=== PATIENT | female | born 1990 | race Caucasian/White ===

== ENCOUNTER 2019-02-04 20:33 | Emergency (ER) | payer MEDICAID, SELFPAY ==
--- NOTE | 2019-02-04 20:35 | ED.GENADUL_ITS ---
Discharge Plan Disposition Patient Disposition: HOME Condition: Good Discharge Details Chief Complaint: EyeProblem Clinical Impression: Acute bacterial conjunctivitis Primary Care Provider: Josee Cisneros ED Provider: Dionisio Gale Home Meds and New Rx's Prescriptions: No Action Unknown capsule See Rx Instructions .ROUTE .COMPLEX RF: 0 Discharge Instructions Instructions: Conjunctivitis (ED) Additional Instructions: You have bacterial conjunctivitis. Please apply 1 to 2 drops in each eye every 3-4 hours. Please do this for the next 3 to 5 days until your symptoms completely resolved. Do not wear any contact lenses. If you notice any worsening of your symptoms, or any new symptoms such as vomiting, diarrhea, fever, chills, shortness of breath, chest pain, numbness, weakness, or fainting , please return immediately to the emergency department for reevaluation. Please follow up with your beater room helper as soon as possible for reassessment and reevaluation. As always, it was a pleasure participating in your medical care today. Referrals: Josee Cisneros [Primary Care Provider] - Medical Decision Making This is a 28-year-old female with no significant past medical history who presents today with signs and symptoms concerning for conjunctivitis. Symptoms been present for the last 24 hours, mild green goopy discharge. No history of STDs. She does have children at home but they are asymptomatic. She denies any traumas or events that would be concerning for foreign body. She does not wear contact lenses. Physical exam demonstrates minimal conjunctival injection, no evidence of pre-or post septal edema. No pain with movement of the eyes, no visual deficits. Signs and symptoms are clinically consistent with mild bacterial conjunctivitis. Patient will be given polymyxin trimethoprim drops. We will give this here in the ED. Discussed red flags which to return and the importance of follow-up with an beater room helper. I have extensively reviewed the treatment plan and discharge instructions with the patient. I have addressed all patient concerns at this time. The patient was made aware of what symptoms to monitor for that would warrant a return to the emergency department. Discussed the plan with the patient, they demonstrate verbal understanding and agreement with our assessment and plan at this time. HPI General Date/Time Provider Initiated Documentation: 02/04/19 20:35 . HPI Narrative: This is a pleasant 28-year-old female with no past medical history who presents today for symptoms of conjunctivitis. The patient states that for the last 24 to 48 hours she has had mild irritation-like symptoms in the eyes, and mild green and yellow gunky and slightly crusty drainage. She denies any trauma to the eyes, any recent foreign bodies, any power saw working, exposure to dust, or welding. She states her symptoms initially started in the right eye and then transition to the left. She has no pain with movement of the eyes. She denies any visual changes. She has no other complaints at this time. She does have children at home, who do go to daycare but they are asymptomatic at this time. She denies any history of STDs. Related Data Home Medications Medication Instructions Recorded Confirmed Unknown See Rx Instructions .ROUTE .COMPLEX 02/04/19 Allergies Allergy/AdvReac Type Severity Reaction Status Date / Time No Known Allergies Allergy Unverified 02/04/19 20:42 Review of Systems All systems reviewed & are unremarkable except as noted in HPI and below PFSH Social History Smoking/Tobacco Use Status: Never Alcohol Intake: never Drug use: Never Substance use type: does not use Do you feel safe at home: Yes Do you feel safe in your relationship?: Yes Exam Narrative Exam Narrative: 1.Const: Well-nourished, Well-developed, appearing stated age 2.Eyes: PERRL, minimal conjunctival injection, and symmetrical lids. Patient has bilateral mild green slightly goopy discharge primarily at the medial and lateral canthi. No evidence of pre-or post septal edema. No pain with movement of the eyes. Ophthalmologic exam demonstrates no evidence of retinal hemorrhage or abnormality. No evidence of otitis media or externa. No other abnormalities. No significant cobblestoning of the lids. No evidence of stye or chalazion. 3.ENT: Atraumatic external nose and ears. Moist MM. Neck: Symmetric, trachea midline, No thyromegaly. 4.CVS: +S1/S2, No murmurs or gallops. Peripheral pulses 2+ and equal in all extremities. Brisk capillary refill in all extremities. 5.RESP: Unlabored respiratory effort. Clear to auscultation bilaterally. No wheezes rales or rhonchi 6.GI: Soft, Nontender/Nondistended, No hepatosplenomegaly. No guarding or rebound. 7.MSK: Normocephalic/Atraumatic, Extremities w/o deformity or ttp No cyanosis or clubbing, Normal movement of all extremities 8.Skin: Warm, Dry. No rashes or lesions. 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 Sensation grossly intact, no focal neurologic deficits. 10.Psych: (AAO) x3. Appropriate mood and affect
[2019-02-04 20:39] VITALS: BP 122/70; PULSE 89; RESP 18; TEMP 36.8; O2SAT 98
[2019-02-04] MEDS: Polymyxin B/Trimethoprim Ophth Soln 10 ML BTL OU (20:55)
[2019-02-04] MEDS: Polymyxin B/Trimethoprim Ophth Soln 10 ML BTL (20:55)
== END 2019-02-04 21:00 | disposition home or self-care (01) ==
LOC: ER 21:04
PROVIDERS: Emergency Provider Student in an Organized Health Care Education/Training Program; PCP Nurse Practitioner
DX: H10.33 Unspecified acute conjunctivitis, bilateral (principal)
CPT/HCPCS: 99283

== ENCOUNTER 2019-05-11 15:54 | Outpatient (REF) | payer MEDICAID, SELFPAY ==
[2019-05-11 22:20] LABS: Anion Gap 9.3 mmol/L (3-11); BUN 15 mg/dL (7-18); CO2 28.7 mmol/L (21.0-32.0); CREATININE 0.63 mg/dL (0.55-1.02); Calcium 8.9 mg/dL (8.5-10.1); Chloride 101 mmol/L (98-107); Glucose 76 mg/dL (74-106); Sodium 139 mmol/L (136-145); TSH (W/Ref FT4) 2.05 uIU/mL (0.36-3.74)
[2019-05-13 10:25] LABS: Varicella IgG Antibody Positive (See Note)
[2019-05-13 10:30] LABS: Measles IgG Antibody Positive (See Note); Mumps Antibody IgG Negative (See Note); Rubella IgG Ab (UVM) Positive (See Note)
== END 2019-05-11 16:14 ==
LOC: NCHCN 15:54
PROVIDERS: PCP Nurse Practitioner; Visit Provider Nurse Practitioner Family
DX: E66.9 Obesity, unspecified (principal); Z13.1 Encounter for screening for diabetes mellitus; Z11.59 Encounter for screening for other viral diseases; Z01.84 Encounter for antibody response examination
CPT/HCPCS: 80048; 86765; 86787; 84443; 86735; 86762

== ENCOUNTER 2021-02-23 18:20 | Emergency (ER) | payer MEDICAID, SELFPAY ==
[2021-02-23 18:25] VITALS: BP 131/90; PULSE 112; RESP 16; TEMP 35.8; O2SAT 112
--- NOTE | 2021-02-23 18:41 | W.ED.GENAD ---
Discharge Plan Disposition Patient Disposition: HOME Condition: Improving Discharge Details Clinical Impression: Hives Primary Care Provider: Josee Cisneros ED Provider: Tomi Hancock Home Meds and New Rx's Prescriptions: New prednisone 50 mg tablet 50 mg PO DAILY 6 Days Qty: 6 RF: 0 famotidine [Zantac-360 (famotidine)] 20 mg tablet 20 mg PO DAILY Qty: 7 RF: 0 Continued buspirone 7.5 mg Tablet 7.5 mg PO TID RF: 0 Discharge Instructions Instructions: Urticaria (ED) Additional Instructions: Please take prednisone as prescribed until finished. May use Zantac as prescribed/or [id number] once daily for a week. May continue Benadryl 25 to 50 mg at bedtime. Please follow-up with regular doctor if not improving in 5 days time. Medical Decision Making 30-year-old female presents with days of itching lower extremity rash she believes may have begun after using a new detergent. Refractive to calamine lotions and antihistamines. She does have an urticarial rash consistent with hives. Discussed with her use of steroids as well as nonsedating antihistamines. She is stable for discharge at this time. HPI General Mode of arrival: ambulatory. Date/Time Provider Initiated Documentation: 02/23/21 18:29. Limitations to Documentation: no limitations. Information obtained by: patient. History of Present Illness 30 year old F presents to the emergency department with the chief complaint of Itching rash on legs and abdomen, described as moderate, Quality is described as dull, and is localized to the chest. Patient reports no radiation. Patient started experiencing this day(s) and it has been constant. No relieving factors improve symptom(s), No exacerbating factors reported . Patient notes denies shortness of breath. Patient did receive the following treatments prior to arrival, none Related Data Home Medications Medication Instructions Recorded Confirmed buspirone 7.5 mg PO TID 02/23/21 02/23/21 famotidine [Zantac-360 20 mg PO DAILY #7 tab 02/23/21 (famotidine)] prednisone 50 mg PO DAILY 6 Days #6 tab 02/23/21 Previous Rx's Medication Instructions Recorded famotidine [Zantac-360 20 mg PO DAILY #7 tab 02/23/21 (famotidine)] prednisone 50 mg PO DAILY 6 Days #6 tab 02/23/21 Allergies Allergy/AdvReac Type Severity Reaction Status Date / Time No Known Allergies Allergy Unverified 02/04/19 20:42 General Stated Complaint: RashLesion LENCHO: 4 Review of Systems Narrative: 6 systems reviewed and otherwise negative [facility] Active Problem List (Updated 02/23/21 @ 18:43 by Tomi Hancock MD) Hives (Acute) Social History Smoking/Tobacco Use Status: Never Smoking risk assessment performed?: Yes Alcohol Intake: never Drug use: Never Substance use type: does not use Do you feel safe at home: Yes Do you feel safe in your relationship?: Yes Exam Narrative Exam Narrative: GEN: awake, alert, oriented 3. Pleasant, well groomed, interactive. HEAD: Normocephalic, atraumatic ENT: Mucous membranes moist, oropharynx unremarkable, External ear exam unremarkable CHEST/RESP: Nontender, clear to auscultation bilateral, no wheeze/rhonchi/rales CARDIOVASCULAR: RRR, no murmur, rub lisa. 2+ Rad pulse bilateral EXT: Full ROM, no edema, raised, erythematous, blanching urticarial rash on thighs. Skin: Raised erythematous, urticarial rash on legs Neuro: Grossly normal neurologic exam, conversant, interactive. Psych: Speech fluent, thoughts congruent, affect normal Course Vital Signs Vital signs: Vital Signs Temperature 35.8 C L 02/23/21 18:25 Pulse 112 H 02/23/21 18:25 Respiratory Rate 16 02/23/21 18:25 Blood Pressure 131/90 02/23/21 18:25 Pulse Oximetry 112 H 02/23/21 18:25 Temperature 35.8 C L 02/23/21 18:25 Temperature Source Skin 02/23/21 18:25 Pulse 112 H 02/23/21 18:25 Respiratory Rate 16 02/23/21 18:25 Respiratory Effort 02/23/21 18:25 Blood Pressure 131/90 02/23/21 18:25 Blood Pressure Position Sitting 02/23/21 18:25 Pulse Oximetry 112 H 02/23/21 18:25 Oxygen Delivery Method Room Air 02/23/21 18:25 Oxygen Flow Rate 0 02/23/21 18:25 Pain Level 6 02/23/21 18:25
[2021-02-23] MEDS: predniSONE 20 MG TAB 60 MG PO (18:52)
[2021-02-23] MEDS: Famotidine 20 MG TAB 40 MG PO (18:52)
== END 2021-02-23 19:00 | disposition home or self-care (01) ==
LOC: ER 18:51
PROVIDERS: Emergency Provider Emergency Medicine; PCP Nurse Practitioner
DX: L50.9 Urticaria, unspecified (principal)
CPT/HCPCS: 99283; J7512

== ENCOUNTER 2021-04-10 17:21 | Outpatient (REF) | payer MEDICAID, SELFPAY | END 2021-04-10 17:22 | disposition home or self-care (01) | LOC: NCHCN 17:21 | PROVIDERS: PCP Nurse Practitioner; Visit Provider Nurse Practitioner Family | DX: N89.8 Other specified noninflammatory disorders of vagina (principal) | CPT/HCPCS: 87480; 87510; 87660 ==

== ENCOUNTER 2022-07-01 13:17 | Outpatient (REF) | payer MEDICAID, SELFPAY | END 2022-07-01 13:18 | disposition home or self-care (01) | LOC: NCHCN 13:17 | PROVIDERS: PCP Nurse Practitioner; Visit Provider Nurse Practitioner Family | DX: R73.09 Other abnormal glucose (principal); E66.9 Obesity, unspecified | CPT/HCPCS: 83036 ==

== ENCOUNTER 2023-06-16 21:06 | Outpatient (REF) | payer MEDICAID, SELFPAY ==
[2023-06-16 21:12] LABS: ALT 39 U/L (14-59); AST 21 U/L (15-37); Albumin 3.2 g/dL (3.4-5.0); Alkaline Phosphatase 94 U/L (46-116); Anion Gap 10.6 mmol/L (3-11); BUN 11 mg/dL (7-18); Bilirubin, Total 0.2 mg/dL (0.2-1.0); CO2 24.4 mmol/L (21.0-32.0); CREATININE 0.9 mg/dL (0.55-1.02); Calcium 8.9 mg/dL (8.5-10.1); Chloride 101 mmol/L (98-107); Estimated GFR 87.11 (mL/min/1.73m2); Glucose 268 mg/dL (74-106); Sodium 136 mmol/L (136-145); Total Protein 7.8 g/dL (6.4-8.2)
== END 2023-06-16 21:07 | disposition home or self-care (01) ==
LOC: NCHCN 21:06
PROVIDERS: Visit Provider Nurse Practitioner Family
DX: E11.9 Type 2 diabetes mellitus without complications (principal)
CPT/HCPCS: 80053; 83036

== ENCOUNTER 2024-05-01 14:02 | Emergency (ER) | payer MEDICAID, SELFPAY ==
[2024-05-01 14:25] VITALS: BP 154/98; PULSE 91; RESP 20; TEMP 37.8; O2SAT 96
[2024-05-01 14:36] VITALS: BP 154/98; PULSE 91; RESP 20; TEMP 37.8; O2SAT 96
--- NOTE | 2024-05-01 14:58 | ED.GENADUL_ITS ---
Discharge Plan Disposition Patient Disposition: Home Condition: Stable Discharge Details Clinical Impression: Influenza A, Cough Primary Care Provider: Unknown,Unknown ED Provider: Nicky Palomo Home Meds and New Rx's Prescriptions: New oseltamivir [Tamiflu] 75 mg capsule 75 mg PO BID 5 Days Qty: 10 0RF promethazine 6.25 mg/5 mL syrup 12.5 mg PO Q6H PRN (Reason: cough) Qty: 120 0RF benzonatate 100 mg capsule 100 mg PO TID PRN (Reason: cough) Qty: 30 0RF ondansetron 4 mg tablet,disintegrating 4 mg PO Q6H PRN (Reason: nausea and vomiting) Qty: 30 0RF No Action buspirone 7.5 mg Tablet 7.5 mg PO TID fluoxetine 20 mg tablet 20 mg PO ONCE Patient Comments: TAKE 1 TABLET BY MOUTH ONCE DAILY metformin 500 mg tablet 500 mg PO BID Patient Comments: TAKE 1 TABLET BY MOUTH TWICE DAILY Discharge Instructions Instructions: Flu, Adult ED Additional Instructions: Flu test today is positive. You have been prescribed some medication to help with your symptoms including cough medication and nausea medication Tamiflu was prescribed. This is a medication that may cause some significant side effects but reduce the duration of your symptoms of influenza slightly. This medication is not necessary to take, if it is making you feel bad you can s top it. Please follow-up with your primary care provider for any additional symptoms. Please continue to take Motrin and Tylenol as needed for fever and bodyaches and stay hydrated HPI General Date/Time Provider Initiated Documentation: 05/01/24 14:04 . Limitations to Documentation: no limitations . Information obtained by: patient . HPI Narrative: 33-year-old female with past medical history of diabetes presents for evaluation of bodyaches and cough. Onset yesterday. Reports that she has significant fatigue. Some cough not particularly productive. No significant short of breath. Does not smoke or have any lung conditions. Reports taking a COVID test at home that was negative. She is vaccinated for influenza. Related Data Home Medications ?Medication ?Instructions ?Recorded ?Confirmed buspirone 7.5 mg tablet 7.5 mg PO TID 02/23/21 05/01/24 benzonatate 100 mg capsule 100 mg PO TID PRN cough #30 caps 05/01/24 fluoxetine 20 mg tablet 20 mg PO ONCE 05/01/24 05/01/24 metformin 500 mg tablet 500 mg PO BID 05/01/24 05/01/24 ondansetron 4 mg disintegrating 4 mg PO Q6H PRN nausea and 05/01/24 tablet vomiting #30 tabs oseltamivir 75 mg capsule (Tamiflu) 75 mg PO BID 5 days #10 caps 05/01/24 promethazine 6.25 mg/5 mL oral 12.5 mg (10 mL) PO Q6H PRN cough 05/01/24 syrup #120 mL Previous Rx's ?Medication ?Instructions ?Recorded benzonatate 100 mg capsule 100 mg PO TID PRN cough #30 caps 05/01/24 ondansetron 4 mg disintegrating 4 mg PO Q6H PRN nausea and 05/01/24 tablet vomiting #30 tabs oseltamivir 75 mg capsule (Tamiflu) 75 mg PO BID 5 days #10 caps 05/01/24 promethazine 6.25 mg/5 mL oral 12.5 mg (10 mL) PO Q6H PRN cough 05/01/24 syrup #120 mL Allergies Allergy/AdvReac Type Severity Reaction Status Date / Time No Known Allergies Allergy Verified 05/01/24 14:27 General Stated Complaint: RespSymp LENCHO: 4 Exam Narrative Exam Narrative: Review of Systems: All systems reviewed & are unremarkable except as noted in HPI and below Well-developed, no acute distress NCAT RRR no murmur Unlabored respiratory effort, no increased work of breathing,, tachypnea or hypoxia Nondistended abdomen no focal neurologic deficits Appropriate mood and affect Course Vital Signs Vital signs: Vital Signs Temperature 37.8 C H 05/01/24 14:25 Pulse 91 H 05/01/24 14:25 Respiratory Rate 20 05/01/24 14:25 Blood Pressure 154/98 H 05/01/24 14:25 Pulse Oximetry 96 05/01/24 14:25 Temperature 37.8 C H 05/01/24 14:36 Pulse 91 H 05/01/24 14:36 Respiratory Rate 20 05/01/24 14:36 Blood Pressure 154/98 H 05/01/24 14:36 Blood Pressure Position Sitting 05/01/24 14:36 Pulse Oximetry 96 05/01/24 14:36 Oxygen Delivery Method Room Air 05/01/24 14:36 Oxygen Flow Rate 0 05/01/24 14:36 Pain Level 6 05/01/24 14:36 Medical Decision Making Emergent evaluation of URI symptoms. Initial differential includes viral illness, doubt sepsis, doubt pneumonia. Flu testing today is positive. Discussed natural course of illness of the flu and continued supportive care measures at home. We reviewed reasons to return to the ED including worsening fever, development of respiratory distress, change in mental status, decreased urination. We reviewed tamiflu and SE profile of the medication. aware to give tylenol or motrin as needed for fever. All questions answered and concerns addressed Quality:SDOH Health Related Social Needs: No Data to Display PFSH All Active Problems Cough (Acute) Influenza A (Acute) Hives (Acute) Social History Smoking/Tobacco Use Status: Never Smoking risk assessment performed?: Yes Alcohol Intake: never Drug use: Never Substance use type: does not use Housing: other Do you feel safe at home: Yes Do you feel safe in your relationship?: Yes
== END 2024-05-01 15:03 | disposition home or self-care (01) ==
LOC: ER 15:17
PROVIDERS: Emergency Provider Emergency Medicine
DX: J10.1 Influenza due to other identified influenza virus with other respiratory manifestations (principal); R05.9 Cough, unspecified; E11.9 Type 2 diabetes mellitus without complications; Z79.84 Long term (current) use of oral hypoglycemic drugs
CPT/HCPCS: 87426; 99283

== ENCOUNTER 2024-05-12 19:29 | Emergency (ER) | payer MEDICAID, SELFPAY ==
[2024-05-12 19:36] VITALS: BP 127/89; PULSE 75; RESP 20; TEMP 36.6; O2SAT 98
--- NOTE | 2024-05-12 19:45 | DI.RAD_ITS ---
Exam(s) XR CHEST 2V PA LATERAL EXAM: XR CHEST 2V PA LATERAL CLINICAL HISTORY: cough. TECHNIQUE: 2D digital imaging was performed. COMPARISON: No exams were available for comparison FINDINGS: 2 views: Heart size is normal. The mediastinum is not widened. Lungs are clear. No infiltrates nor pleural effusions. IMPRESSION: No acute pulmonary findings. DATA REPOSITORY: RADIATION DOSE DELIVERED:
--- NOTE | 2024-05-12 19:47 | W.ED.GENAD ---
Discharge Plan Disposition Patient Disposition: Home Condition: Stable Discharge Details Clinical Impression: Cough Primary Care Provider: Unknown,Unknown ED Provider: Mahesh Hearn Home Meds and New Rx's Prescriptions: New amoxicillin-pot clavulanate 875-125 mg tablet 1 tab PO BID Qty: 19 0RF Continued buspirone 7.5 mg Tablet 7.5 mg PO TID fluoxetine 20 mg tablet 20 mg PO ONCE Patient Comments: TAKE 1 TABLET BY MOUTH ONCE DAILY metformin 500 mg tablet 500 mg PO BID Patient Comments: TAKE 1 TABLET BY MOUTH TWICE DAILY promethazine 6.25 mg/5 mL syrup 12.5 mg PO Q6H PRN (Reason: cough) Qty: 120 0RF benzonatate 100 mg capsule 100 mg PO TID PRN (Reason: cough) Qty: 30 0RF ondansetron 4 mg tablet,disintegrating 4 mg PO Q6H PRN (Reason: nausea and vomiting) Qty: 30 0RF Discharge Instructions Additional Instructions: Your x-ray did not show any concerning findings at this time. You can use the inhaler 2 puffs every 4 hours as needed. If you are not improving in a few days follow-up with your primary care provider or express care. If you feel a lot more ill or have new symptoms such as persistent vomiting return to the emergency department for reevaluation HPI General Mode of arrival: ambulatory. Date/Time Provider Initiated Documentation: 05/12/24 19:30. Limitations to Documentation: no limitations. Information obtained by: patient. History of Present Illness 33 year old F presents to the emergency department with the chief complaint of cough, described as moderate, Patient started experiencing this week(s) (2) and it has been constant. No relieving factors improve symptom(s), No exacerbating factors reported . Patient notes denies chest pain, fever/chills and nausea/vomiting. Related Data Home Medications ?Medication ?Instructions ?Recorded ?Confirmed buspirone 7.5 mg tablet 7.5 mg PO TID 02/23/21 05/12/24 benzonatate 100 mg capsule 100 mg PO TID PRN cough #30 caps 05/01/24 05/12/24 fluoxetine 20 mg tablet 20 mg PO ONCE 05/01/24 05/12/24 metformin 500 mg tablet 500 mg PO BID 05/01/24 05/12/24 ondansetron 4 mg disintegrating 4 mg PO Q6H PRN nausea and 05/01/24 05/12/24 tablet vomiting #30 tabs promethazine 6.25 mg/5 mL oral 12.5 mg (10 mL) PO Q6H PRN cough 05/01/24 05/12/24 syrup #120 mL amoxicillin 875 mg-potassium 1 tab PO BID #19 tabs 05/12/24 clavulanate 125 mg tablet Previous Rx's ?Medication ?Instructions ?Recorded benzonatate 100 mg capsule 100 mg PO TID PRN cough #30 caps 05/01/24 ondansetron 4 mg disintegrating 4 mg PO Q6H PRN nausea and 05/01/24 tablet vomiting #30 tabs promethazine 6.25 mg/5 mL oral 12.5 mg (10 mL) PO Q6H PRN cough 05/01/24 syrup #120 mL amoxicillin 875 mg-potassium 1 tab PO BID #19 tabs 05/12/24 clavulanate 125 mg tablet Allergies Allergy/AdvReac Type Severity Reaction Status Date / Time No Known Allergies Allergy Verified 05/12/24 19:35 General Stated Complaint: RespSymp LENCHO: 4 Review of Systems All systems reviewed & are unremarkable except as noted in HPI and below Constitutional Constitutional: Denies chills, Denies fever(s) and Denies weakness Cardiovascular Cardiovascular: Denies chest pain and Denies dyspnea Respiratory Respiratory: Reports cough and Denies dyspnea Gastrointestinal Gastrointestinal: Denies abdominal pain, Denies nausea and Denies vomiting Neurologic Neurologic: Denies weakness Exam Const General: no acute distress Orientation: alert [facility] Head: normal to inspection Ears: external ears normal General nose exam: external nose normal Mouth: moist mucous membranes Eyes General: appearance normal, both eyes and all related structures Neck Neck: normal visual inspection Resp Effort & Inspection: normal respiratory effort and able to speak in complete sentences Auscultation: wheezes Cardio Rate: regular rate Skin General skin exam: no rashes or lesions noted Neuro General: patient alert and patient oriented x3 Extrem General: normal to inspection Psych Mental Status: mental status grossly normal Course Vital Signs Vital signs: Vital Signs Temperature 36.6 C 05/12/24 19:36 Pulse 75 05/12/24 19:36 Respiratory Rate 20 05/12/24 19:36 Blood Pressure 127/89 02/13/25 19:36 Pulse Oximetry 98 05/12/24 19:36 Temperature 36.6 C 05/12/24 19:36 Temperature Source Temporal Artery Scan 05/12/24 19:36 Pulse 75 05/12/24 19:36 Respiratory Rate 20 05/12/24 19:36 Blood Pressure 127/89 05/12/24 19:36 Blood Pressure Position Sitting 05/12/24 19:36 Pulse Oximetry 98 05/12/24 19:36 Oxygen Delivery Method Room Air 05/12/24 19:36 Oxygen Flow Rate 0 05/12/24 19:36 Medical Decision Making 33-year-old female Who has had a cough and sinus congestion for over 2 weeks and tested positive for flu over a week ago Comes in with continued cough and congestion. Denies any fevers or difficulty breathing though she does states she feels wheezy every once in a while. She is speaking full sentences in no distress on exam. She has an intermittent dry cough. She has no stridor or drooling on exam. She is very mild apical wheezing bilaterally otherwise clear lung sounds. No JVD. I suspect respiratory infection, versus sinusitis. Will obtain an x-ray and give an albuterol inhaler to use and see if this helps her symptoms. X-ray negative, patient is stable. Given she has had symptoms for over 10 days able initiate antibiotics to cover for possible sinusitis. She will follow-up with her PCP or express care if not improving and return precautions given Differential Diagnosis Differential Diagnosis: Pneumonia, sinusitis, bronchitis Quality:SDOH Health Related Social Needs: No Data to Display PFSH All Active Problems (Updated 05/12/24 @ 21:05 by Mahesh Hearn MD) Cough (Acute) Cough (Acute) Influenza A (Acute) Hives (Acute) Social History Smoking/Tobacco Use Status: Never Smoking risk assessment performed?: Yes Alcohol Intake: never Drug use: Never Substance use type: does not use Housing: other Do you feel safe at home: Yes Do you feel safe in your relationship?: Yes
--- OUTSIDE RECORDS SUMMARY | 2024-05-12 19:55 | XMS_ITS | Encounter Summary ---
Author Organization [facility] [place] [address] Care Team Providers Care Explosive Ordnance Technician Name Role Phone Vesna Wheeler APRN Primary Care Provider Encounter Details Date Type Department Care Team (Late st Contact Info) Description 07/14/2022 4:00 PM EDT Notes [place] [address] Social History Tobacco Use Types Packs/Day Years Used Date Smoking Tobacco: Never Assessed Sex and Gender Information Value Date Recorded Sex Assigned at Not on file Gender Identity Not on file Sexual Orientation Not on file documented as of this encounter Progress Notes * Lilli Tena - 07/14/2022 4:00 PM EDT PATIENT ATTENDED THE INTRO TO BAR[facility]ATRIC SURGERY [facility] 07[facility]14[facility]20[facility] documented in this encounter Plan of Treatment Not on file documented as of this encounter Visit Diagnoses Not on filedocumented in this encounter Care Teams Explosive Ordnance Technician Relationship Specialty Start Date End Date Vesna Wheeler APRN [address] [place] [address] PCP - General Family Medicine 11/22/20 documented as of this encounter
--- OUTSIDE RECORDS SUMMARY | 2024-05-12 19:55 | XMS_ITS | Encounter Summary ---
[facility] [place] [address] Care Team Providers Care Insurance Administrator Name Role Phone Vesna Wheeler APRN Primary Care Provider [phone] Encounter Details Date Type Department Care Team (Late st Contact Info) Description 02/18/2021 Telephone [place] [id number] Lilli Tena Social History Tobacco Use Types Packs/Day Years Used Date Smoking Tobacco: Never Assessed Sex and Gender Information Value Date Recorded Sex Assigned at Not on file Gender Identity Not on file Sexual Orientation Not on file documented as of this encounter Miscellaneous Notes * Telephone Encounter - Lilli Tena - 02/18/2021 10:55 AM EST Left message for Zaira re: referral. The original letter sent was returned for incorrect mailing address. I have re-sent to her PO [address] and asked her to call to go over the referral documented in this encounter Plan of Treatment Not on file documented as of this encounter Visit Diagnoses Not on filedocumented in this encounter Care Teams Insurance Administrator Relationship Specialty Start Date End Date Vesna Wheeler APRN [address] [place] [address] PCP - General Family Medicine 11/22/20 documented as of this encounter
--- OUTSIDE RECORDS SUMMARY | 2024-05-12 19:55 | XMS_ITS | Encounter Summary ---
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 Name Role Phone Vesna Wheeler APRN Primary Care Provider [phone] Reason for Referral * Consultation (Routine) - Closed Specialty Diagnoses / Procedures Referred By Conthector t Referred To Contact General Surgery Diagnoses Obesity, unspecified classification, unspecified obesity type, unspecified whether serious comorbidity present Vesna Wheeler APRN [address] [place] [address] [facility] Gen Surgery [address] [place] [phone] Referral ID Status Reason Start Date Expiration Date V isits Requested Visits Authorized [id number] Closed Consult, Test & Treat PCP Updated and/or Approved 07/04/2022 07/04/2023 18 18 Encounter Details Date Type Department Care Team (Latest Contact Info) Description 07/04/2022 Transcribe Orders eDH Incoming Referrals [phone] Vesna Wheeler APRN [address] [place], [place] [id number] Obesity, unspecified classification, unspecified obesity type, unspecified whether serious comorbidity present Social History Tobacco Use Types Packs/Day Years Used Date Smoking Tobacco: Never Assessed Sex and Gender Information Value Date Recorded Sex Assigned at Not on file Gender Identity Not on file Sexual Orientation Not on file documented as of this encounter Plan of Treatment Scheduled Referrals Name Type Priority Associated Diagnoses Orde r Schedule Referral to Bariatric Surgery Program Outpatient Referral Routine Obesity, Unspecified Classification, Unspecified Obesity Type, Unspecified Whether Serious Comorbidity Present Ordered: 07/04/2022 documented as of this encounter Visit Diagnoses Diagnosis Obesity, unspecified classification, unspecified obesity type, unspecified whether serious comorbidity present documented in this encounter Care Teams Sawdust Machine Operator Relationship Specialty Start Date End Date Vesna Wheeler APRN [address] [place] [address] PCP - General Family Medicine 11/22/20 documented as of this encounter
--- OUTSIDE RECORDS SUMMARY | 2024-05-12 19:55 | XMS_ITS | Encounter Summary ---
Author Organization [facility] [place] [address] Care Team Providers Care Veterinary Dentist Name Role Phone Vesna Wheeler APRN Primary Care Provider [phone] Encounter Details Date Type Department Care Team (Late st Contact Info) Description 10/07/2022 9:00 AM EDT Office [place] [phone] Olga Mireles, FAMILY AND CONSUMER SCIENCE PROFESSOR [facility] [place] [address] Jose Williamson, RD [facility] [place] [address] Adult BMI 40.0-44.9 kg/sq m Social History Tobacco Use Types Packs/Day Years Used Date Smoking Tobacco: Never Smokeless Tobacco: Former Tobacco Cessation:Counseling Given: Not Answered Sex and Gender Information Value Date Recorded Sex Assigned at Not on file Gender Identity Not on file Sexual Orientation Not on file documented as of this encounter Last Filed Vital Signs Vital Sign Reading Time Taken Comments Blood Pressure 130/94 10/07/2022 9:13 AM EDT Pulse 65 10/07/2022 9:13 AM EDT Temperature - - Respiratory Rate - - Oxygen Saturation 99% 10/07/2022 9:13 AM EDT Inhaled Oxygen Concentration - - Weight 122 kg (269 lb) 10/07/2022 9:13 AM EDT Height 166.4 cm (5' 5.5) 10/07/2022 9:13 AM EDT Body Mass Index 44.08 10/07/2022 9:13 AM EDT documented in this encounter Progress Notes * Olga Mireles APRN - 10/07/2022 9:00 AM EDT [place] [address] Reason for consultation: Zaira is referred by Vesna Wheeler APRN for consultation for consideration of surgical treatment of obesity. Preferred procedure: sleeve gastrectomy - d/t no re-routing of the intestine Prior bariatric surgery evaluations: None BARIATRIC SURGERY PROGRAM PATHWAY Review of progress with the requirements of the Bariatric Surgery Program: Education: [x] has [] Has not attended a Introduction to the [facility] seminar, a comprehensive two hour meeting that provides a program overview, education on bariatric surgeries offered at [facility], risks and benefits, as well as patient expectations and follow up. [facility] B[facility] Program Educational seminars viewed Bariatric Surgery Program evaluations with RD: Completed today Program start weight: 296 WT at visit #1: Gallbladder status: [] intact, not studied. [x] S/P cholecystectomy VTE risk assessment: extended VTE prophylaxis [] is [x] is not indicated post bariatric surgery discharge Next steps in pathway: Additional testing/ consultations as determined as needed to be determined at today's visit. 8. HOSPITAL DISCHARGE NEEDS: [] Ursodiol [x] PPI [] Lovenox History of present illness: Zaira has struggled with obesity for many years. The patient has tried multiple weight loss measures without sustainable success. Factors that patient identifies as contributing to obesity include: genetics, overconsumption and inactivity. Zaira seeks bariatric surgery for health reasons. Motivating factors for seeking surgery for bariatric surgery: Improve health, feel better Pt with hx of depression/anxiety: she feels that she may have bipolar disorder. She has appt scheduled next week with family psychologist for further evaluation. She notes up/downs in her moods. Hx of recent nicotine use- quit chewing tobacco 2 weeks ago (~ 09/27/22) Recently dx with Diabetes 06/2022, A1c at time of dx was 10. She is d/t follow up with PCP next weekwith repeat labs. Patient Active Problem List Diagnosis Type 2 diabetes mellitus without complication Anxiety Depression Adult BMI 40.0-44.9 kg/sq m History of nicotine use- quit chewing tobacco 09/27/22 Pre-Bariatric Surgery Obesity related medical issues: Problem Baseline issue if checked Comments Diabetes/prediabetes/insulin resistance [x] On ozempic , A1 10 Metabolic syndrome or PCOS [] HTN/Cardiac disease [] GERD [] Hyperlipidemia [] MARGARITO [] Musculoskeletal issues [] Liver Disease [] Other [x] Depression/anxiety [] Metabolic Syndrome Criteria : must have 3 or more of the following Waist of 40 men, 35 women Blood pressure of 130/85 mm/HG or higher or taking blood pressure medication A trigylceride level oabove 150 mg/dl Fasting glucose >100 mg/dl or taking glucose lowering meds HDL <40 mg/dl Men and <50 mg/dl women Functional status: Is ambulation limited most or all of the time? no Tolerance: she can walk a mile and climb a flight of stairs ADLs: able to carry on without difficulty- [x] independent [] partially dependent [] totally dependent [] Unknown Lactose/ Food/ Wheat/ Latex allergy/sensitivity: denies control plan: s/p tubal ligation. We discussed that is not advised for 18-24 monthsafter surgery and that reliable control is recommended. Discussed that rapid wt loss, decrease nutrition and risk of micro/macronutrient deficiencies can lead to growth restriction and com plications for both mother and baby. MBSAQIP Preoperative Risk Assessment (negative if left blank): General [x] Current nicotine use (chew) within 1 year (quit 2 weeks ago) Pulmonary [] COPD (Severe) [] History of pulmonary embolism Cardiac [] History of myocardial infarction [] Previous PCI/PTCA [] Previous cardiac surgery Vascular [] Vein thrombosis requiring therapy [] Venous stasis [] IVC filter IVC filter timing [] placed in anticipation of procedure [] IVC filter preexisting [] Unknown Renal [] Currently requiring or on dialysis [] Renal insufficiency Nutritional/Immune/Oncologyy/Other [] Steroid/Immunosuppressant use for chronic condition [] Therapeutic anticoagulation [x] Previous obesity surgery/foregut surgery (gallbladder) Past Surgical History: Procedure Laterality Date ABDOMINAL ADHESION SURGERY 2017 SECTION x2 CHOLECYSTECTOMY 2017 WRIST SURGERY Left ganglion cyst removal Current Outpatient Medications: busPIRone (Buspar) 15 mg tablet, Take 15 mg by mouth daily., Disp: , Rfl: Ozempic 1 mg/dose (4 mg/3 mL) Pen Injector, Inject 1 mg subcutaneously once a week., Disp: , Rfl: No Known Allergies No family history on file. Social History Socioeconomic History Marital status: Spouse name: Not on file Number of children: Not on file Years of education: Not on file Highest education level: Not on file Occupational History Not on file Tobacco Use Smoking status: Never Smokeless tobacco: Former Vaping Use Vaping Use: Never used Substance and Sexual Activity Alcohol use: Not on file Drug use: Not on file Sexual activity: Not on file Other Topics Concern Not on file Social History Narrative Not on file Social Determinants of Health Financial Resource Strain: Not on file Food Insecurity: Not on file Transportation Needs: Not on file Physical Activity: Not on file Housing Stability: Not on file Social history/Support: Lives with her , who is supportive. Has 2 kids 10 and 5, also has 9 yo step son. Her dad is supportive. 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 Health habits: Nicotine/tobacco:quit chewing tobacco 2 x weeks ago. ETOH: rare 1-2x year. NSAIDS: rare Recreational drug use/marijuana/CBD or THC: occasional THC- discussion re: no inhalation of CBD/THC, Diagnostic screenin. Lab data: Will need labs prior to surgeon visit to include Nicotine/metabolite testing. 2. Psychological evaluation : Will arrange through [facility] once she feels her mood is stable and that she is ready to proceed with surgery. Hx of depression/anxiety, binge eating d/o. Pt concerned re bipolar dagnosis. Bariatric Surgery VTE Risk Assessment Score Patients will be considered to be at high risk if they have one or more of the following: [] Previous VTE or BMI >/= 60 kg/m2 Or two or more of the following: [] Age > 50 [] BMI >/= 50 kg/m2 [] Male sex [x] Recent tobacco use [] Obstructive sleep apnea [] Venous insufficiency/ varicose veins [] OCP or HRT within 30 days of surgery Total: extended VTE prophylaxis [] is [x] is not indicated post bariatric surgery discharge Patients are advised to stop HRT and OCP/ DMPA 1 month prior to surgery and hold for 1 month postop, and use control during this time if appropriate. All patients who take coumadin/ anti-10Ainhibitors preoperatively are referred to the Thrombosis Clinic for recommendations. Review of Systems (negative if left blank): GI: [] dysphagia [x] early satiety (d/t ozempic) [] abdominal pain [] hernia [] prior CT scan abdomen [x] nausea/vomiting (d/t ozempic) [] blood in stool [x] Diarrhea/constipation (diet related) [] IBD [] postprandial RUQ pain Neurologic: [] dizziness [] chronic headaches Cardiovascular: [] history of chest pain, squeezing, pressure [] syncope [] murmur [] palpitations Respiratory: [] shortness of breath [] wheezing : [] hematuria [x] history of renal calculi (remote) Musculoskeletal [] myalgia/arthralgias: Extremities: [] varicose veins [] edema Skin: [] skinfold rashes [] chronic wounds Endocrine: [] PCOS [] thyroid disease Heme/Lymph: [] excessive bruising [] lymphadenopathy [] iron deficiency history Allergic/ Immun: [] use of steroid/ immunosuppressant for chronic condition Psychiatric [x] depression [x] anxiety/panic attacks [] history of suicide attempt [] addiction [] psychiatric or rehab admissions Physical exam: Vital signs:BP (!) 130/94 Pulse 65 Ht 166.4 cm (5' 5.5) Wt 122 kg (269 lb) SpO2 99% BMI 44.08 kg/m?? Visit date Wt (lbs) BMI HT Highest WT 322 - Pre-op 10/07/22 269 44 5'5.5 Physical Exam General: Alert, pleasant, NAD, appears well. No lymphadenopathy Resp: No increased work of breathing. Speaking in full sentences. No cough/wheeze witnessed. Psychiatric: Normal mood and affect. Appropriate eye contact. Discussion of treatment of obesity and of the [facility] Bariatric Surgery Program: Ms.. Montelongo is aware that other treatments for obesity are available, ie, dietary, behavior modification, weight loss medications, exercise as well as surgical weight loss methods. The risks and benefits of bariatric surgery, including gastric bypass and sleeve gastrectomy are discussed at every I ntroduction to the [facility] B[facility] Surgery Program meeting and all Educational Seminars, and will bereviewed in detail at the second pre-operative visit. We discussed the need to be psychologically ready for dietary and lifestyle changes after surgery. Regular counseling is highly recommended to help cope with changes. Pt understands that surgery is not a guarantee for wt loss, and that they will need to practice healthy eating habits for life and will need detention follow up with the bariatric surgery program. Reviewed ETOH intake should be no more than 1-2 drinks, 1-2 x week leading up to 2 weeks prior to surgery and then no ETOH starting 2 weeks before surgery for 6-12 mo after surgery. Reviewed after atthat point if pt chooses to have ETOH, it should be done cautiously and with decreased frequency. Limit to 1-2 drinks weekly. Discussed changes in ETOH absorption post bariatric surgery and concerns re: risk of ETOH misuse/abuse as well as increase risk of liver damage, ulcers and potential of impairment of digestion and absorption of nutrients. Pt verbalizes understanding. Patient is aware that there are both program and insurance requirements that need to be met before visit with surgeon. Prospective patients are encouraged to thoroughly research bariatric surgery, via the internet, the[facility] website at [email or web address], books, and journals. Copy of [facility] Bariatric Surgery Education Handbook given to patient. Assessment/ Plan: Zaira Montelongo is a 32 y.o. with morbid obesity with obesity-related comorbidities including type2 diabetes, anxiety disorder,depression, recent hx nicotine use, ? Bipolar d/o She has had failure to sustain weight loss by medical management and meets the criteria proposed bythe NIH Consensus Guidelines for surgical treatment of severe obesity and the AACE, TOS, ASMBS Clinical Practice Guidelines for the Perioperative Nutritional, Metabolic and Non-surgical Support of the Bariatric Surgery Patient. She is aware that there are non-surgical methods to achieve weight loss. she has had failure to sustain weight loss by medical management and meets the criteria proposed bythe NIH Consensus Guidelines for surgical treatment of severe obesity and the AACE, TOS, ASMBS Clinical Practice Guidelines for the Perioperative Nutritional, Metabolic and Non-surgical Support of the Bariatric Surgery Patient. she is aware that there are non-surgical methods to achieve weight loss. We briefly reviewed the procedures of laparoscopic sleeve gastrectomy and laparoscopic ana en y gastric bypass. We discussed the possibility of poor weight loss and the need to make sustained dietary and lifestyle changes in order for the surgery to be successful. Patient was encouraged to review the risks and benefits of both procedures in the [facility] handbook, as well as online via the ASMBS website. Pt was advised that the final decision for procedure is made by the surgeon with input from the patient and team. she is interested in a sleeve gastrectomy After review of medical record and patient history and visit, it was determined that the following items need to be addressed before proceeding with scheduling visit with surgeon. Weight related co- morbidities: Diabetes: Discussed need for diabetes to be better controlled with A1c < 8 before proceeding with bariatric surgery Pt aware of no weight gain policy. Ongoing weight loss is encouraged. Diet counseling with RD per insurance and program recommendations. Will cont RD visit with [facility] Reviewed Nicotine/tobacco free for 4 months prior to surgeon meeting - will plan to check nicotine/metabolites prior to MD consult. Labs: CBC and CMP within 6 months of surgery, per MBSAQIP accredited bariatric center guidelines. Will arrange for labs prior to MD consult visit. Hx of anxiety/depression, ? Bipolar d/o. Discussed her current concern re: her mental health and possible bipolar disorder and wanting to make sure her mood is stable and the her health both physically and mental health are as well controlled an optimal as possible. Reviewed importance of taking her time before surgery to increase chances of success post op. Regular counseling is highly recommended to help cope with changes. Pt understands that surgery is not a guarantee for wt loss, and that they will need to practice healthy eating habits for life and will need intermediate school teacher follow up with the bariatric surgery program. Hx of d/o eating: Discussion concerns re: eating behaviors and Readiness for surgery. will continueto work on strategies to help manage stress. Recommended ongoing counseling. Robert marie- to be done to be done through [facility],/ We discussed the need to be psychologically ready for dietary and lifestyle changes after surgery. Complete any additional requirements mandated by the patient's insurance carrier. She has had an opportunity to have all her questions answered and is in agreement with the plan of care. She was encouraged to call with any questions or concerns. She will RTC for further consideration of proceeding with bariatric surgery once she meets the above requirements. Zaira verbalizes understanding and agrees with the above plan. This was a 60 minute visit spent with patient discussing bariatric surgery readiness, risks and benefits, reviewing with patient insurance and program criteria. Additional time was spent reviewing previous notes and labs, in care coordination, & completing documentation. Olga Mireles APRN * Jose Williamson RD - 10/07/2022 9:00 AM EDT Initial Bariatric Preoperative Nutrition Note Provider: JOSE WILLIAMSON RD Clinical Dietitian for the [facility] B[facility]ric [facility] Encounter Date: 10/07/22 Reason for consult: Zaira Montelongo is a 32 y.o. female here for a monthly nutrition visit as partof the preoperative dieting requirements. Pt attended the Bariatric Introductory Session on 07/14/22. SUBJECTIVE: Interview: struggling to lose weight. Knows people who have had surgery. Talked to PCP about bariatric surgery over the years. Top 3 Reason/motivation for surgery: - to have a healthier living. What behaviors do you need to change? - has not identified anything. Biggest downfall was soda and has cut that out (~May 2022). Felipe's PB cup- would buy the holiday bag and it would not take long to finish. 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 Lives w and 2 children; 1 other child who is there on weekends but has seen him in a couple months. History of Weight Gain: For the most part, steady gain over the years. Was able to lose all the weight after her first child however was started on depo shot and gained a lot of weight. She retained weight after the of her second child. Current weight is the same as weight she was when with her first child. 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 Highest weight: 322# at age 30 Lowest weight: unsure - maybe where she is at now. Was previously at this weight when she was ~21. At what weight did you feel the best? Cannot remember. Dieting History: Pt notes no provider ever recommended a weight loss/lifestyle intervention. Type of Diet Wt Lost (lbs.) Wt. Regain (lbs.) Dates Duration Comments Thrive- nutritional shakes, caffeine pills, patches for energy/metabolism 2017 6 months Too expensive- tried a couple of times Ozempic 30 # June 2022 (296#). OTC- weight loss medications none Has tried a few History of binging, purging or other disordered eating practices: no laxative misuse. No purging. No NORMA. + hx binge eating- hasn't since starting Ozempic. Reports a binge to be constantly eating/snacking or overfilling herself to point she felt like she was going to vomit. This would happen a few times per week. Notes this occurred the most a few year ago when she was living in a hotel and her depression was poorly controlled. Constipation/diarrhea: some constipation. BM daily. Nausea/vomiting: some nausea with ozempic; has a better handle on it now. OBJECTIVE: Related Medical History: Class III Obesity, Type 2 DM, anxiety/depression Most recent A1c - 10%. (Has repeat scheduled for later this month) Medications/Supplements:none. AOM: Ozempic- at first didn't feel well on it but now improved; attributes it to different meal choices. Weight History: Date Weight (lbs) HT BMI Comments ~2020 322# Highest Weight 07/01/22 296# Initial program weight (PCP office) 10/07/22 269# 66 44.1 Nutrition visit #1 Nutrition visit #2 Nutrition visit #3 1st pre-op visit with surgeon [facility] % Surgery 1 month post-op 4 months post-op [place] Body Weight (based on BMI of 25): 155# 30-70% Excess Weight Loss: 189-235#; 50% Excess Weight Loss: 212# Food Allergies/Intolerances: none. Diet Recall: Breakfast - banana Lunch - none Supper - broccoli and pork chop Snacks - Fluids - drinks water throughout the day. Alcohol - Never. No hx abuse. Doesn't like it. Tobacco: chews tobacco; last chewed - a couple weeks ago. Starting chewing tobacco about 10/11 years ago. Exercise: walking, swimming, always outside, considering a gym membership. Usually [id number] stepsper day. Psychological Evaluations: not currently in counseling. Has appt with Kelly Hinojosa - (10/21). PCP made referral to psych- pt concerned about bipolar disorder (family hx). Assessment: Zaira Montelongo was seen today for nutrition counseling in anticipation of metabolic and bariatric surgery. Previous attempts at dieting were mainly pills or nutrition drinks and did notlead to sustained weight loss. Pt would benefit from going through the [facility] for additional dietary counseling as well as psychological evaluation prior to bariatric surgery. Briefly discussed lifetime commitment to healthy lifestyle, taking vitamin/mineral supplements and following with the bariatric program. At one point, pt was interested in moving to [place] however states there are not plans to do that at this time. Goals set today: - Aim to eat 3 meals per day. Each meal should have a protein source. Eggs are OK but aim to add inother options. (likes wilson), see handbook for list of food sources of protein. - consider healthy choice meals or protein drinks as an easy way to restart routine of eating 3 times per day - Keep up the great work not eating and drinking at the same; work on sipping fluids throughout theday - Could consider Premier Protein, Equate Protein or Fairlife CorePower protein drinks Intervention/Plan: Healthy eating and lifestyle habits in preparation for bariatric surgery were reviewed. The importance of exercise and movement was discussed Pt was encouraged to contact the bariatric program with any further questions or concerns. Contact information provided. Information given to patient: 1. [facility] B[facility] Surgery Education Handbook, a 102 page document (revision June 2011) which contains extensive information regarding pre and post- operative nutrition guidelines including: preop diet, Diet stages I-IV, hydration recommendations, protein guidelines, dumping syndrome, food intoleranc es, vitamin and mineral supplementation as well as a list of books and online bariatric resources. documented in this encounter Plan of Treatment Not on file documented as of this encounter Visit Diagnoses Diagnosis Adult BMI 40.0-44.9 kg/sq m Body Mass Index 40.0-44.9, adult documented in this encounter Care Teams Veterinary Dentist Relationship Specialty Start Date End Date Vesna Wheeler APRN [address] [place], [place] [id number] PCP - General Family Medicine 11/22/20 documented as of this encounter
--- OUTSIDE RECORDS SUMMARY | 2024-05-12 19:55 | XMS_ITS | Encounter Summary ---
Author Organization [facility] [place] [address] Care Team Providers Care Director Export Name Role Phone Vesna Wheeler APRN Primary Care Provider [phone] Encounter Details Date Type Department Care Team (Latest Contact Info) Description 10/07/2022 Travel Social History Tobacco Use Types Packs/Day Years Used Date Smoking Tobacco: Never Smokeless Tobacco: Former Sex and Gender Information Value Date Recorded Sex Assigned at Not on file Gender Identity Not on file Sexual Orientation Not on file documented as of this encounter Plan of Treatment Not on file documented as of this encounter Visit Diagnoses Not on filedocumented in this encounter Care Teams Director Export Relationship Specialty Start Date End Date Vesna Wheeler APRN [address] [place] [address] PCP - General Family Medicine 11/22/20 documented as of this encounter
--- OUTSIDE RECORDS SUMMARY | 2024-05-12 19:55 | XMS_ITS | Encounter Summary ---
Author Organization [facility] [place] [address] Care Team Providers Care Dirt Contractor Name Role Phone Vesna Wheeler APRN Primary Care Provider [phone] Encounter Details Date Type Department Care Team (Latest Contact Info) Description 07/14/2022 Travel Social History Tobacco Use Types Packs/Day Years Used Date Smoking Tobacco: Never Assessed Sex and Gender Information Value Date Recorded Sex Assigned at Not on file Gender Identity Not on file Sexual Orientation Not on file documented as of this encounter Plan of Treatment Not on file documented as of this encounter Visit Diagnoses Not on filedocumented in this encounter Care Teams Dirt Contractor Relationship Specialty Start Date End Date Vesna Wheeler APRN [address] [place] [address] PCP - General Family Medicine 11/22/20 documented as of this encounter
--- OUTSIDE RECORDS SUMMARY | 2024-05-12 19:55 | XMS_ITS | Encounter Summary ---
Author Organization [place] [address] Care Team Providers Care Manager Creative Name Role Phone Amado Russ MD, Manan Primary Care Provider [phone] Encounter Details Date Type Department Care Team (Late st Contact Info) Description 01/11/2014 Orders Only [place] [address] Klaus Anand MD [facility] [place] [address] Social History Tobacco Use Types Packs/Day Years Used Date Smoking Tobacco: Never Assessed Sex and Gender Information Value Date Recorded Sex Assigned at Not on file Gender Identity Not on file Sexual Orientation Not on file documented as of this encounter Plan of Treatment Not on file documented as of this encounter Visit Diagnoses Not on filedocumented in this encounter Care Teams Manager Creative Relationship Specialty Start Date End Date Manan Fischer MD [address] [place] [address] [place] [address] PCP - General 02/19/10 11/21/20 documented as of this encounter
--- OUTSIDE RECORDS SUMMARY | 2024-05-12 19:55 | XMS_ITS | Clinical Summary ---
Author Organization [facility]ly [facility] [place] [address] Care Team Providers Care Clinic Business Manager Name Role Phone Vesna Wheeler APRN Primary Care Provider [phone] Allergies No known active allergies Medications Medication Sig Dispensed Refills Start Date End Date Status busPIRone (Buspar) 15 mg tablet Take 15 mg by mouth daily. 09/18/2022 Active Ozempic 1 mg/dose (4 mg/3 mL) Pen Injector Inject 1 mg subcutaneously once a week. 09/27/2022 Active Active Problems Problem Noted Date Diagnosed Date Type 2 diabetes mellitus without complication Anxiety 10/07/2022 Depression 10/07/2022 Adult BMI 40.0-44.9 kg/sq m 10/07/2022 History of nicotine use- quit chewing tobacco 09/27/2210/07/2022 Immunizations Name Administration Dates Next Due Covid-19 Bivalent (Pfizer Co mirnaty) 12yrs+ (3826-1088) 12/19/2021 Covid-19 Monovalent (Ephraim/J&J) (8730-7489) ,07/26/2020 Social History Tobacco Use Types Packs/Day Years Used Date Smoking Tobacco: Never Smokeless Tobacco: Former Tobacco Cessation:Counseling Given: Not Answered Sex and Gender Information Value Date Recorded Sex Assigned at Not on file Gender Identity Not on file Sexual Orientation Not on file Last Filed Vital Signs Vital Sign Reading [...] Mass Index 44.08 10/07/2022 9:13 AM EDT Plan of Treatment Health Maintenance Due Date Last Done Comments DM Creatinine yearly 2000 DM Hemoglobin A1c 2000 DM Opthalmology Exam 2000 DM Urine Microalbumin yearly 2000 HIV screen 2008 Hepatitis C Screening 2008 Lipid Screening 2008 Hepatitis B vaccine (0-59 yrs) (1) 2009 Pneumococcal Vaccine: At-Ris k 5-49yrs (1 of 2 - PCV) 2009 Tetanus/Diphtheria/Pertussis Vaccines (1 - Tdap) 2009 HPV test 2020 PAP Smear 2020 Covid-19 Vaccine (4 - 2023- season) 2023 12/19/2021, 02/25/2021, 07/26/2020 Influenza (Flu) vaccine (1 o f 1 - Influenza standard series) 11/29/2023 Care Teams Clinic Business Manager Relationship Specialty Start Date End Date Vesna Wheeler APRN [address] [place] [address] PCP - General Family Medicine 11/22/20
[2024-05-12] MEDS: Albuterol HFA 8 GM 60 PUFF INH IH (19:56)
[2024-05-12] MEDS: Inhaler, Assist Device 1 EACH MC (19:56)
--- NOTE | 2024-05-12 20:49 | DI.VRAD_ITS ---
PROCEDURE INFORMATION: Exam: XR Chest Exam date and time: 05/12/2024 8:22 PM Age: 33 years old Clinical indication: Cough TECHNIQUE: Imaging protocol: Radiologic exam of the chest. Views: 2 views. COMPARISON: No relevant prior studies available. FINDINGS: Lungs: Unremarkable. No consolidation. Pleural spaces: Unremarkable. No pleural effusion. No pneumothorax. Heart/Mediastinum: Unremarkable. No cardiomegaly. Bones/joints: Unremarkable. IMPRESSION: No acute findings. Dictated and Authenticated by: Corrie Luna MD. Orderin Nadiya Aragon MD
[2024-05-12] MEDS: Amoxicillin 875/Clav. 125 TAB PO (21:16)
[2024-05-12 21:20] VITALS: BP 124/84; PULSE 87; RESP 18; TEMP 36.8; O2SAT 98
== END 2024-05-12 21:18 | disposition home or self-care (01) ==
PROVIDERS: Emergency Provider Emergency Medicine
DX: R05.9 Cough, unspecified (principal); Z79.84 Long term (current) use of oral hypoglycemic drugs
CPT/HCPCS: 99283; 71046

== ENCOUNTER 2024-07-07 09:39 | Outpatient (REF) | payer MEDICAID, SELFPAY ==
[2024-07-07 14:17] LABS: HCT 39.4 % (36.0-46.0); HGB 12.4 g/dL (11.2-15.7); MCH 26.7 pg (27.0-33.0); MCHC 31.5 % (32.0-36.0); MCV 85 fL (80-95); MPV 9.9 fL (8.0-11.0); Platelet Count 239 10^3/uL (130-400); RBC 4.64 10^6/uL (3.93-5.22); RDW-SD 42.9 fL; WBC 8.32 10^3/uL (4.4-10.8)
[2024-07-07 14:23] LABS: ESR 38 mm/hr (0-20)
[2024-07-07 14:51] LABS: ALT 39 U/L (14-59); AST 14 U/L (15-37); Albumin 3.4 g/dL (3.4-5.0); Alkaline Phosphatase 95 U/L (46-116); BUN 16 mg/dL (7-18); Bilirubin, Total 0.2 mg/dL (0.2-1.0); CREATININE 0.9 mg/dL (0.55-1.02); Calcium 9.3 mg/dL (8.5-10.1); Chloride 102 mmol/L (98-107); Estimated GFR 86.57 (mL/min/1.73m2); Glucose 213 mg/dL (74-106); Potassium 4.2 mmol/L (3.5-5.1); Sodium 139 mmol/L (136-145); TSH (W/Ref FT4) 3.24 uIU/mL (0.36-3.74); Total Protein 7.6 g/dL (6.4-8.2)
[2024-07-07 15:55] LABS: COMMENT (LAB VIEW ONLY) 120.31 mg/dL
[2024-07-07 15:56] LABS: Microalb ug/mg Crea 428.8 ug/mg Cr
[2024-07-07 22:49] LABS: Rheumatoid Factor <8.6 IU/mL (<12.0)
[2024-07-07 23:29] LABS: CRP, High Sensitivity >15.00 mg/L (See Note)
[2024-07-08 09:28] LABS: Cyclic Citrullinated Peptide <2.5 U/mL (<5.0)
[2024-07-08 13:58] LABS: Ferritin 28 ng/mL (8-252); Iron 48 ug/dL (50-170); Total Iron Binding Capacity 321 ug/dL (250-450); Transferrin Sat 15 % (15-50)
[2024-07-08 15:25] LABS: ANA Interpretation Negative (Negative)
== END 2024-07-07 09:40 | disposition home or self-care (01) ==
LOC: NCHCN 09:39
PROVIDERS: Visit Provider Nurse Practitioner Family
DX: M25.59 Pain in other specified joint (principal)
CPT/HCPCS: 80053; 85027; 85652; 86141; 86200; 82043; 82570; 82728; 83540; 83550; 84443; 86038; 86431

== ENCOUNTER 2024-07-08 10:59 | Outpatient (CLI) | payer MEDICAID, SELFPAY ==
--- NOTE | 2024-07-08 13:23 | DI.RAD_ITS ---
Exam(s) XR SACRUM COCCYX XR LUMBAR SPINE COMPLETE EXAM: XR LUMBAR SPINE COMPLETE CLINICAL HISTORY: LOW BACK PAIN, M54.50. TECHNIQUE: 2D digital imaging was performed. Five views of the lumbar spine. Three views of the sa thomas COMPARISON: CR XR SACRUM COCCYX from 07/08/2024 FINDINGS: BONES: No fracture or destructive lesion. Vertebral body heights are maintained. No facet hypertro phy identified . Bilateral L5 spondylolysis. The SI joints and visualized portions of the hip join ts appear normal. DISKS: Intervertebral disc spaces are maintained. ALIGNMENT: Slight spondylolisthesis at L5-S1. SOFT TISSUE: Normal. IMPRESSION: Bilateral L5 spondylolysis and slight L5-S1 spondylolisthesis. DATA REPOSITORY: RADIATION DOSE DELIVERED:
--- NOTE | 2024-07-08 13:23 | DI.RAD_ITS ---
Exam(s) XR THORACIC SPINE COMPLETE EXAM: XR THORACIC SPINE COMPLETE CLINICAL HISTORY: THORACIC BACK PAIN, M54.6. TECHNIQUE: 2D digital imaging was performed. Three views. COMPARISON: CR THORACIC SPINE from 01/05/2012 FINDINGS: BONES: There is no fracture or destructive lesion. The vertebral bodies and posterior elements are un remarkable. Small endplate osteophytes and mild lower thoracic region. ALIGNMENT: Within normal limits. DISKS: Interverebral disc spaces are maintained. SOFT TISSUE: Visualized lungs are clear. IMPRESSION: Mild degenerative changes in the lower thoracic spine. DATA REPOSITORY: RADIATION DOSE DELIVERED:
== END 2024-07-08 11:19 ==
LOC: DI 11:01
PROVIDERS: Visit Provider Nurse Practitioner Family
DX: M47.27 Other spondylosis with radiculopathy, lumbosacral region (principal)
CPT/HCPCS: 72072; 72110; 72220

== ENCOUNTER 2024-10-12 19:52 | Outpatient (REF) | payer MEDICAID, SELFPAY ==
[2024-10-12 20:37] LABS: Glucose 100 mg/dL (Negative)
[2024-10-12 20:38] LABS: C & S Indicated? Yes; WBC 20-50 HPF (0-5)
== END 2024-10-12 19:53 | disposition home or self-care (01) ==
LOC: NCHCN 19:52
PROVIDERS: Visit Provider Nurse Practitioner Family
DX: R32 Unspecified urinary incontinence (principal)
CPT/HCPCS: 87077; 81003; 81015; 87086; 87186

== ENCOUNTER 2024-11-14 17:30 | Emergency (ER) | payer MEDICAID, SELFPAY ==
[2024-11-14 17:49] VITALS: BP 122/86; PULSE 103; RESP 16; TEMP 36.9; O2SAT 98
--- NOTE | 2024-11-14 18:15 | RT.EKG_ITS ---
APPROVED REPORT Exam: Resting ECG Reason for Exam: Kathleen CONDE, pleuritic Patient Location: E HR:92 bpm ECG Measurements Heart Rate 92 AXIS FL 148 P 34 QRSd 89 QRS 57 QT 372 T 10 QTc 461 Conclusion Sinus rhythm, rate 92 No interval abnormalities No STEMI Isolated T wave inversion lead III No priors
--- NOTE | 2024-11-14 18:15 | W.ED.GENAD ---
Discharge Plan Disposition Patient Disposition: Home Condition: Stable Discharge Details Clinical Impression: Right-sided chest wall pain, Hypomagnesemia, Elevated ALT measurement Primary Care Provider: Unknown,Unknown ED Provider: Erin Stewart Recommendations for Follow Up Recommended tests to be ordered by follow up provider: Mag, LFTs 2 weeks Home Meds and New Rx's Prescriptions: No Action amoxicillin-pot clavulanate 875-125 mg tablet 1 tab PO BID Qty: 19 0RF buspirone 7.5 mg Tablet 7.5 mg PO TID fluoxetine 20 mg tablet 20 mg PO ONCE Patient Comments: TAKE 1 TABLET BY MOUTH ONCE DAILY metformin 500 mg tablet 500 mg PO BID Patient Comments: TAKE 1 TABLET BY MOUTH TWICE DAILY promethazine 6.25 mg/5 mL syrup 12.5 mg PO Q6H PRN (Reason: cough) Qty: 120 0RF benzonatate 100 mg capsule 100 mg PO TID PRN (Reason: cough) Qty: 30 0RF ondansetron 4 mg tablet,disintegrating 4 mg PO Q6H PRN (Reason: nausea and vomiting) Qty: 30 0RF duloxetine 60 mg capsule,delayed release(DR/EC) 60 mg PO DAILY Patient Comments: TAKE ONE CAPSULE BY MOUTH EVERY DAY prazosin 1 mg capsule 1 mg PO DAILY Patient Comments: TAKE ONE CAPSULE BY MOUTH PRIOR TO BEDTIME pregabalin 75 mg capsule 75 mg PO BID Patient Comments: TAKE ONE CAPSULE BY MOUTH TWICE A DAY ferrous sulfate [FeroSul] 325 mg (65 mg iron) tablet 325 mg PO DAILY Patient Comments: TAKE 1 TABLET BY MOUTH EVERY OTHER DAY Discharge Instructions Instructions: Costochondritis Additional Instructions: You were seen in the emergency department today for evaluation of right sided chest and back pain that was worse when you breathe. In our department you had a full physical examination performed, you would laboratory studies that were reassuring and showed no sign of infection, blood clot, or damage to your heart. You had a very slightly low magnesium, you can replete this with magnesium rich foods such as leafy green vegetables and dark chocolate. Your ALT which is one of the liver enzymes was also very slightly elevated. Your primary care doctor should recheck these levels in a few weeks to ensure that they are normalizing. It is possible that you have a condition called costochondritis, and inflammation of the cartilage connected to the ribs in that area. I recommend that you purchase lidocaine patches [id number] and place them over the area of maximal pain. Please use therapeutic dosing of Tylenol (acetaminophen) & Advil (ibuprofen) in an alternating fashion as follows: Take 1000mg of Tylenol every 6 hours without missing doses- that is 4 times per day. [place] in between the Tylenol doses, take 600mg of Advil also on a 6 hour schedule, that is also 4 times per day. With this strategy, you will be taking something for fever/pain as often as every 3 hours. The daily maximum dosing of Tylenol is 4000mg, and the daily maximum dosing of Advil is 2400mg. Please note that some common cold medications & prescription pain medications may contain acetaminophen and you need to read OTC drug labels and factor that in to maximum daily doses. Please follow-up with your primary care provider in the next few days to discuss this visit and any symptoms that change, worsen, or persist. Thank you for allowing us to be part of your care. HPI General Mode of arrival: ambulatory. Date/Time Provider Initiated Documentation: 11/14/24 17:34. Limitations to Documentation: no limitations. Information obtained by: patient and old records reviewed. HPI Narrative: This is a 34-year-old female patient with a past medical history significant for diabetes, fibromyalgia, and cholecystectomy, presenting for evaluation of right back/side pain radiating into her abdomen. This pain started today, the patient reports that she has had body pain in the past on the opposite side but today's pain is new. It radiates around to her right upper quadrant and is worse with deep breath or yawning. She states that she has not had any fevers or chills, cough, sputum production, or upper respiratory symptoms. She does have some discomfort in the abdomen that is not associated with any nausea or vomiting. The pain came on while at rest, was not postprandial in nature and she has been able to tolerate oral intake. Denies overlying skin changes. Denies chest pain. No trauma reported, the patient took her Lyrica prior to arrival without improvement in her pain. Related Data Home Medications ?Medication ?Instructions ?Recorded ?Confirmed buspirone 7.5 mg tablet 7.5 mg PO TID 02/23/21 11/14/24 benzonatate 100 mg capsule 100 mg PO TID PRN cough #30 caps 05/01/24 05/12/24 fluoxetine 20 mg tablet 20 mg PO ONCE 05/01/24 11/14/24 metformin 500 mg tablet 500 mg PO BID 05/01/24 11/14/24 ondansetron 4 mg disintegrating 4 mg PO Q6H PRN nausea and 05/01/24 05/12/24 tablet vomiting #30 tabs promethazine 6.25 mg/5 mL oral 12.5 mg (10 mL) PO Q6H PRN cough 05/01/24 05/12/24 syrup #120 mL amoxicillin 875 mg-potassium 1 tab PO BID #19 tabs 05/12/24 clavulanate 125 mg tablet duloxetine 60 mg capsule,delayed 60 mg PO DAILY 11/14/24 11/14/24 release ferrous sulfate 325 mg (65 mg 325 mg PO DAILY 11/14/24 11/14/24 iron) tablet (FeroSul) prazosin 1 mg capsule 1 mg PO DAILY 11/14/24 11/14/24 pregabalin 75 mg capsule 75 mg PO BID 11/14/24 11/14/24 Previous Rx's ?Medication ?Instructions ?Recorded benzonatate 100 mg capsule 100 mg PO TID PRN cough #30 caps 05/01/24 ondansetron 4 mg disintegrating 4 mg PO Q6H PRN nausea and 05/01/24 tablet vomiting #30 tabs promethazine 6.25 mg/5 mL oral 12.5 mg (10 mL) PO Q6H PRN cough 05/01/24 syrup #120 mL amoxicillin 875 mg-potassium 1 tab PO BID #19 tabs 05/12/24 clavulanate 125 mg tablet Allergies Allergy/AdvReac Type Severity Reaction Status Date / Time No Known Allergies Allergy Verified 05/12/24 19:35 General Stated Complaint: Abd Prob LENCHO: 3 Exam Narrative Exam Narrative: Gen: Awake and alert, in no apparent distress HEENT: Non-icteric sclera Neck: Supple Lungs: No apparent respiratory distress, normal respiratory effort. Lung sounds clear and equal bilaterally without wheezes, rhonchi, rales CV: Appears well perfused, heart with regular rate and rhythm, tachycardic in triage to 103, strong distal pulses. Chest wall stable to compression without crepitus or deformity, some tenderness to palpation along the right lateral and posterior rib region. No overlying skin changes Abdomen: Non-distended, soft, minimal tenderness to palpation in the right upper quadrant without rigidity, rebound, or guarding. Gentile sign negative. MSK: Moves 4 extremities without apparent limitation in ROM. No peripheral edema, no unilateral calf swelling or tenderness. Skin: Visualized skin without rashes, cyanosis. Neuro: Normal Gait, no obvious focal deficits or facial asymmetry. Speaks in full, clear sentences. Psych: Appropriate for situation. Course Vital Signs Vital signs: Vital Signs Temperature 36.9 C 11/14/24 17:49 Pulse 103 H 11/14/24 17:49 Respiratory Rate 16 11/14/24 17:49 Blood Pressure 122/86 11/14/24 17:49 Pulse Oximetry 98 11/14/24 17:49 Temperature 36.9 C 11/14/24 17:49 Temperature Source Oral 11/14/24 17:49 Pulse 103 H 11/14/24 17:49 Respiratory Rate 16 11/14/24 17:49 Blood Pressure 122/86 11/14/24 17:49 Blood Pressure Position Sitting 11/14/24 17:49 Pulse Oximetry 98 11/14/24 17:49 Oxygen Delivery Method Room Air 11/14/24 17:49 Oxygen Flow Rate 0 11/14/24 17:49 Pain Level 8 11/14/24 17:49 Medical Decision Making This is a 34-year-old female patient presenting for evaluation of right sided rib and right upper quadrant abdominal pain associated with breathing. Differential includes but is not limited to costochondritis and musculoskeletal abnormalities, considered intrapulmonary abnormalities including pneumonia, bronchitis, pulmonary embolism, pleural effusion. The patient does not meet PERC criteria due to her initial heart rate for rule out of PE, though she does not have evidence of DVT during that she take hormonal treatments. I considered intra-abdominal pathology including choledocholithiasis, hepatitis, pancreatitis, symptoms are less consistent with appendicitis, gastroenteritis, diverticulitis. I am reassured that the patient is tolerating oral intake and I have a lower concern for metabolic or electrolyte derangement and dehydration. The patient is young and does not have significant cardiac risk factors to suggest ACS. No skin changes to suggest herpes zoster. We will obtain laboratory studies to include CBC, CMP, magnesium, troponin, lipase, and D-dimer. I will obtain an EKG and a chest x-ray. I will provide the patient with Tylenol, Toradol, and a Lidoderm patch for initial symptomatic management of pain. - I reviewed the EKG, which shows a sinus rhythm with a rate of 92, I do note Q waves in lead III and inverted T waves, isolated, no active ischemia or ectopy appreciated. I reviewed the patient's laboratory studies, and note no leukocytosis, anemia, or thrombocytopenia. D-dimer was negative, making PE highly unlikely. Chemistry panel reveals no significant electrolyte derangements that the patient does have a very slight hypomagnesemia to 1.7, and was counseled to increase her dietary intake. She had a very slight elevation in her ALT to 70 with no associated changes to any of the other liver enzymes. Troponin was undetectable and and this patient who is exceptionally low risk as regards cardiac risk factors I feel that this is an appropriate test and she does not require delta troponins. Lipase is low. Chest x-ray reviewed by myself, showing no pneumonia, rib fractures, or other abnormalities to account for the patient's symptoms. The patient reports improvement in her symptoms after the above-noted treatment, and her syndrome is most concerning for a musculoskeletal abnormality, potentially costochondritis. The patient has scheduled outpatient follow-up with her provider in 2 days, and I counseled her on conservative management with Tylenol, ibuprofen, and Lidoderm. At this time, the patient has had a full medical evaluation and is safe for discharge to home. They are hemodynamically stable, ambulatory, and tolerating PO. They are understanding of the follow-up plan and return precautions. They left our facility without incident. Erin Stewart MD [facility] All Active Problems (Updated 11/14/24 @ 21:02 by Erin Stewart MD) Elevated ALT measurement (Acute) Hypomagnesemia (Acute) Right-sided chest wall pain (Acute) Hives (Acute) Social History Smoking/Tobacco Use Status: Never Smoking risk assessment performed?: Yes Alcohol Intake: never Drug use: Never Substance use type: does not use Housing: other Do you feel safe at home: Yes Do you feel safe in your relationship?: Yes
[2024-11-14 19:01] LABS: Abs Immature Grans 0.04 10^3/uL (0.0-0.06); HCT 38.6 % (36.0-46.0); HGB 12.5 g/dL (11.2-15.7); Immature Grans % 0.5 %; MCH 27.4 pg (27.0-33.0); MCHC 32.4 % (32.0-36.0); MCV 85 fL (80-95); MPV 9.1 fL (8.0-11.0); Platelet Count 223 10^3/uL (130-400); RBC 4.57 10^6/uL (3.93-5.22); RDW 13.7 % (11.7-14.6); RDW-SD 41.9 fL; WBC 7.81 10^3/uL (4.4-10.8)
[2024-11-14] MEDS: Lidocaine 5% Patch 1 PATCH TP (19:06)
[2024-11-14] MEDS: Acetaminophen 500 MG TAB 1000 MG PO (19:06)
[2024-11-14] MEDS: Ketorolac 15 MG/ML VIAL IVP (19:06)
[2024-11-14 19:27] LABS: D-Dimer 415 ng/mlFEU (<500)
[2024-11-14 19:29] LABS: ALT 70 U/L (14-59); AST 26 U/L (15-37); Albumin 3.3 g/dL (3.4-5.0); Alkaline Phosphatase 81 U/L (46-116); Anion Gap 7.8 mmol/L (3-11); BUN 8 mg/dL (7-18); Bilirubin, Total 0.3 mg/dL (0.2-1.0); CO2 30.2 mmol/L (21.0-32.0); Calcium 9.0 mg/dL (8.5-10.1); Chloride 100 mmol/L (98-107); Estimated GFR 86.03 (mL/min/1.73m2); Glucose 190 mg/dL (74-106); Lipase 47 U/L (<78); Magnesium 1.7 mg/dL (1.8-2.4); Potassium 3.7 mmol/L (3.5-5.1); Sodium 138 mmol/L (136-145); Total Protein 7.3 g/dL (6.4-8.2); Troponin I < 4 ng/L (<or=51)
--- NOTE | 2024-11-14 20:10 | DI.RAD_ITS ---
Exam(s) XR CHEST 2V PA LATERAL EXAM: XR CHEST 2V PA LATERAL CLINICAL HISTORY: CP, left back pain worse with breathing. TECHNIQUE: 2D digital imaging was performed. COMPARISON: No exams were available for comparison FINDINGS: 2 views: Heart size is normal. The mediastinum is not widened. Lungs are clear. No infiltrates nor pleural effusions. IMPRESSION: No acute pulmonary findings. DATA REPOSITORY: RADIATION DOSE DELIVERED:
[2024-11-14 20:39] VITALS: BP 123/74; PULSE 89; RESP 14; O2SAT 97
--- NOTE | 2024-11-14 20:54 | DI.VRAD_ITS ---
PROCEDURE INFORMATION: Exam: XR Chest Exam date and time: 11/14/2024 8:09 PM Age: 34 years old Clinical indication: Other: Cp, left back pain worse with breathing TECHNIQUE: Imaging protocol: Radiologic exam of the chest. Views: 2 views. COMPARISON: CR XR CHEST 2V PA LATERAL 05/12/2024 8:22 PM FINDINGS: Lungs: Unremarkable. No consolidation. Pleural spaces: Unremarkable. No pleural effusion. No pneumothorax. Heart/Mediastinum: Unremarkable. No cardiomegaly. Bones/joints: Unremarkable. IMPRESSION: No acute findings. Dictated and Authenticated by: Gibson Cabrera MD. Orderin St. Herve Khan MD
[2024-11-14 21:10] VITALS: BP 124/72; PULSE 88; RESP 16; O2SAT 98
== END 2024-11-14 21:11 | disposition home or self-care (01) ==
PROVIDERS: Emergency Provider Emergency Medicine
DX: R07.89 Other chest pain (principal); E83.42 Hypomagnesemia; R74.01 Elevation of levels of liver transaminase levels
CPT/HCPCS: 99284 ×2; 96374; 80053; 83690; 93005; 71046; 83735; 84484; 85025; 85379; 93010; J1885